=== PATIENT | male | born 1940 | race Caucasian/White ===

== ENCOUNTER 2016-12-31 05:22 | Day surgery (SDC) | payer MEDICARE, OTHER ==
[2016-12-31] MEDS ORDERED: Midazolam 1 MG/ML 2 ML SDV IV ONE ×4 (05:23→06:38)
[2016-12-31] MEDS ORDERED: fentaNYL 100 MCG/2 ML SDV IV ONE ×3 (05:23→06:36)
[2016-12-31] MEDS ORDERED: Dextrose 5%-0.45% NaCl 1,000 ML IV SCH (05:30)
[2016-12-31] MEDS ORDERED: fentaNYL 100 MCG/2 ML SDV ONE (06:14)
[2016-12-31] MEDS ORDERED: Midazolam 1 MG/ML 2 ML SDV ONE (06:14)
--- NOTE | 2016-12-31 07:35 | OR ---
DATE: 12/31/2016 PROCEDURES: Esophagogastroduodenoscopy, NBI, and multiple pinch biopsies. INSTRUMENT USED: GIF-H180 Olympus video panendoscope. PREMEDICATIONS: No oral topical anesthesia used. Fentanyl 100 mcg intravenous, Versed 2 mg intravenous. Nasal O2 cannula. The procedure was done under pulse oximetry, BP recording, and pvc monitor. INDICATION: The patient with known Kitchen esophagus, on long-term PPI. Surveillance esophagogastroduodenoscopy is performed for detection of any dysplasia and/or malignancy. Endoscopic hemostasis therapy if needed. DESCRIPTION OF PROCEDURE: The scope was passed with ease. Adequate visualization of the esophagus was made from proximal to distal areas. No upper esophageal lesions identified. No distal esophageal stricture. No uphill or downhill esophageal varices. No Lindsey-Rubio tear. No evidence of erosive esophagitis by Strandquist criteria. No esophageal polyp or tumor mass identified. [place] columnar epithelium was noted at around 34 cm distal to the oral verge. No esophageal polyp or tumor mass identified. Gastric fundus examination by retroflexion showed no polypoid lesions. No proximal gastric varices noted. No gastric ulcer, malignant mass, or vascular ectasia identified. Duodenal bulb showed no ulcer. Visualized second part of the duodenum, unremarkable. Four quadrant biopsies taken from the pink encroaching proximal columnar epithelium at 34, 36, and 38 cm distal to the oral verge, and sent for any histopathologic evidence of dysplasia. NBI views were obtained of the distal esophagus. No bleeding was noted from any of the visualized areas at the completion of examination. IMPRESSION: Kitchen esophagus. The patient tolerated the procedure well. [facility] /[id number]
[2016-12-31 10:02] VITALS: BP 120/54
== END 2016-12-31 08:54 | disposition home or self-care (01) ==
LOC: DL.ENDO 05:22
PROVIDERS: ATTEND Internal Medicine Gastroenterology
DX: K22.70 Barrett's esophagus without dysplasia (principal); N40.0 Benign prostatic hyperplasia without lower urinary tract symptoms; E66.9 Obesity, unspecified; Z90.49 Acquired absence of other specified parts of digestive tract; Z98.52 Vasectomy status; Z87.891 Personal history of nicotine dependence; Z79.899 Other long term (current) drug therapy; Z68.38 Body mass index [BMI] 38.0-38.9, adult
CPT/HCPCS: 43239; J2250; J3010; J7042; 88305

== ENCOUNTER 2019-02-25 06:24 | Day surgery (SDC) | payer MEDICARE, OTHER ==
[~2019-02-25 06:24] MED LIST: Dextrose 5%-0.45% NaCl 1,000 ML IV SCH; Midazolam 1 MG/ML 2 ML SDV ONE; Sodium Chloride 0.9% 10 ML Syringe FLUSH PRN; fentaNYL 100 MCG/2 ML SDV ONE
[2019-02-25] MEDS ORDERED: Midazolam 1 MG/ML 2 ML SDV IV ONE ×4 (06:25→07:29)
[2019-02-25] MEDS ORDERED: fentaNYL 100 MCG/2 ML SDV IV ONE ×3 (06:25→07:24)
--- NOTE | 2019-02-25 09:21 | OR ---
DATE: 02/25/2019 PROCEDURE: Total colonoscopy and multiple cold snare polypectomies. INSTRUMENT USED: [id number] Olympus video colonoscope. PREMEDICATIONS: Fentanyl 100 mcg intravenous, Versed 2.5 mg intravenous, nasal O2 cannula. The procedure was done under pulse oximetry, BP recording, and security operations specialist. INDICATION: The patient with previous colonic tubular adenoma. Surveillance colonoscopic examination is done for detection of any polypoid lesions and removal, endoscopic hemostasis therapy if needed. DESCRIPTION OF PROCEDURE: Initial rectal exam showed large external hemorrhoidal tags. Rigid anoscopy showed moderate-sized internal hemorrhoids without bleeding from them. The colonoscope was passed with ease up to the ileocecal area. Photographs were taken of the cecum identified by landmarks of appendiceal orifice and double-bulged ileocecal folds. In the distal transverse colon, 3 to 5 mm sized polyps two of them were noted. Photographs were taken, cold snare polypectomies were done, the tissue was retrieved and sent for histopathology. No bleeding was noted from any of the visualized areas at the commencement of the examination. There was large amount of fecal material which could not be aspirated clear, bowel preparation [place] scale 1. No stricture. No vascular ectasia. No large isolated ulcerations seen. No evidence of diffuse inflammatory bowel disease in the form of friability, contact bleeding, or ulcerations. The examination was compromised in quite a few areas due to the presence of solid fecal material that could not be aspirated clear. Probing the proximal sides of folds and flexures using adequate distention and clearing up the stool material, withdrawal of the scope was made, cecum to rectum time over 6 minutes. No bleeding was noted from any of the visualized areas at the completion of examination. IMPRESSION: 1. External and internal hemorrhoids. 2. Multiple colonic polyps. The patient tolerated the procedure well. [facility] /[id number]
[2019-02-25 11:11] VITALS: BP 144/70; PULSE 80
== END 2019-02-25 09:45 | disposition home or self-care (01) ==
LOC: DL.ENDO 06:24
PROVIDERS: ATTEND Internal Medicine Gastroenterology
DX: Z12.11 Encounter for screening for malignant neoplasm of colon (principal); D12.3 Benign neoplasm of transverse colon; K64.8 Other hemorrhoids; K64.4 Residual hemorrhoidal skin tags; K22.70 Barrett's esophagus without dysplasia; E78.5 Hyperlipidemia, unspecified; N40.0 Benign prostatic hyperplasia without lower urinary tract symptoms; R73.01 Impaired fasting glucose; Z86.010 Personal history of colon polyps; Z87.891 Personal history of nicotine dependence; Z79.899 Other long term (current) drug therapy
CPT/HCPCS: 45385; J2250; J3010; J7042

== ENCOUNTER 2019-05-19 05:46 | Day surgery (SDC) | payer MEDICARE, OTHER ==
[2019-05-19] MEDS ORDERED: Midazolam 1 MG/ML 2 ML SDV IV ONE ×4 (05:47→07:09)
[2019-05-19] MEDS ORDERED: fentaNYL 100 MCG/2 ML SDV IV ONE ×3 (05:47→07:06)
[2019-05-19] MEDS ORDERED: Dextrose 5%-0.45% NaCl 1,000 ML IV SCH (06:00)
[2019-05-19] MEDS ORDERED: Sodium Chloride 0.9% 10 ML Syringe FLUSH PRN (06:00)
[2019-05-19] MEDS ORDERED: Midazolam 1 MG/ML 2 ML SDV ONE (06:16)
[2019-05-19] MEDS ORDERED: fentaNYL 100 MCG/2 ML SDV ONE (06:16)
[2019-05-19 09:45] VITALS: BP 127/69; PULSE 76
--- NOTE | 2019-05-19 09:45 | OR ---
DATE: 05/19/2019 PROCEDURES: Total colonoscopy, narrow-band imaging, and multiple cold snare polypectomies. INSTRUMENT USED: [id number]-H190DL Olympus video colonoscope. PREMEDICATIONS: Fentanyl 100 mcg intravenous, Versed 3 mg intravenous, nasal O2 cannula. The procedure was done under pulse oximetry, BP recording, and editing clerk. INDICATION: The patient with previous colonic polyps and inadequate study due to poor bowel preparation, restudy done for detection of any polypoid lesions and removal, endoscopic hemostasis therapy if needed. DESCRIPTION OF PROCEDURE: Initial rectal exam was unremarkable. Rigid anoscopy showed small internal hemorrhoids without bleeding from them. The colonoscope was passed with ease up to the ileocecal area. Photographs were taken of the normal-appearing cecum, identified by double bulged ileocecal folds and appendiceal orifice. No bleeding was noted from any of the visualized areas at the commencement of the examination. The bowel preparation was found to be adequate, [place] scale 2 in all the areas, total score 6. Diminutive polyps were noted in the mid descending colon and proximal transverse colon, photographs were taken, NBI views were obtained, cold snare polypectomies were done, the tissues were retrieved and sent for histopathology. Probing the proximal sides of folds and flexures using adequate distention and clearing up the stool material, withdrawal of the scope was made, cecum to rectum time over 6 minutes. No bleeding was noted from any of the visualized areas at the completion of examination. IMPRESSION: 1. Internal hemorrhoids. 2. Multiple diminutive polyps. The patient tolerated the procedure well. [facility] /[id number]
== END 2019-05-19 09:40 | disposition home or self-care (01) ==
LOC: DL.ENDO 05:46
PROVIDERS: ATTEND Internal Medicine Gastroenterology
DX: Z12.11 Encounter for screening for malignant neoplasm of colon (principal); K64.8 Other hemorrhoids; D12.3 Benign neoplasm of transverse colon; D12.4 Benign neoplasm of descending colon; Z86.010 Personal history of colon polyps
CPT/HCPCS: 45385; J2250; J3010; J7042; 88305